=== PATIENT | male | born 1965 | race Caucasian/White ===

== ENCOUNTER 2016-09-04 10:07 | Emergency (ER) | payer OTHER ==
[2016-09-04 10:14] VITALS: TEMP 98.2; BMI 28.3
[2016-09-04 10:30] LABS: AUTOMATED BASOPHIL 0.4 % (0-2); AUTOMATED EOSINOPHIL 2.2 % (0-5); AUTOMATED LYMPH 30.1 % (17-44); AUTOMATED MONOCYTE 6.8 % (3-10); AUTOMATED NEUTROPHIL 60.5 % (45-76); MPV 8.5 fL (7.4-10.4)
--- NOTE | 2016-09-04 10:40 | DIRPT ---
CLINICAL DATA: Right-sided chest and epigastric pain. EXAM: CHEST 2 VIEW COMPARISON: None. FINDINGS: Heart size is normal. Overall cardiomediastinal silhouette is within normal limits in size and configuration. Mild prominence of the pulmonary arteries suggests some degree of pulmonary artery hypertension. Lungs are clear. No evidence of pneumonia. No pleural effusion. No pneumothorax. Mild degenerative change noted within the thoracic spine. Osseous and soft tissue structures about the chest are otherwise unremarkable. IMPRESSION: 1. No acute findings. 2. Prominence of the pulmonary arteries suspicious for some degree of pulmonary artery hypertension. Electronically Signed By: Cameron Bridges M.D. On: 09/04/2016 10:38
[2016-09-04 10:41] LABS: BLOOD UREA NITROGEN 18 MG/DL (9-20); CALCIUM 9.3 MG/DL (8.4-10.2); CALCULATED OSMOLALITY 277 MOs/Kg (270-290); CHLORIDE 102 mEq/L (98-107); GLUCOSE 327 mg/dL (70-99); SODIUM LEVEL 136 mEq/L (137-146); TOTAL PROTEIN 7.4 G/DL (6.3-8.2)
[2016-09-04 10:42] LABS: PARTIAL THROMB. TIME 23.2 SEC (22-35)
[2016-09-04] MEDS ORDERED: ASPIRIN (CHEWABLE) 81 MG TAB PO ONE (10:49)
[2016-09-04] MEDS ORDERED: NITROGLYCERINE 2 % OINTMENT PACK TOP ONE (10:49)
--- NOTE | 2016-09-04 10:51 | EDPRACDOC ---
- General Information Information Source: Patient Mode of Arrival: Car - History of Present Illness Onset: 5 days HPI: Pt c/o Substernal chest pain radiating to back and epigastric area x 5 days. Denies fever, cough, congestion, sob, n/v, changes in bowel or bladder, leg swelling, rash. Cath and stress "many, many years ago", 1 stent placed. Chest Pain Location: Reports: Substernal, Epigastric Pain Radiation: Reports: Back Symptoms Occur: Reports: Gradually Cardiac Risk Factors: Reports: Smoker, Hyperlipidemia Cardiac History of: Reports: Cardiac Cath, Stress Test, Stent Medications within 24 Hours: Reports: None Prehospital Care: Reports: EKG Pain Came On: Reports: Gradually Pain Status: Present Now Pain Description: Reports: Aching Pain Severity: Mild Pain Worsens With: Reports: Nothing Pain Improves With: Reports: Nothing Associated Signs and Symptoms: Reports: Abdominal Pain <Consuelo Spence - Last Filed: 09/04/16 13:44> <Sangeeta Coburn - Last Filed: 09/04/16 13:46> - General Information Chief Complaint: Chest Pain Stated Complaint: CP Time Seen by Provider: 09/04/16 10:41 Home Medications: Home Medications No Home Medications 09/04/16 Allergies/Adverse Reactions: Allergies Allergy/AdvReac Type Severity Reaction Status Date / Time No Known Allergies Allergy Verified 09/04/16 10:09 ED Past Medical History - History Reviewed Yes Nurses notes reviewed and agree except as marked - Patient Medical History Cardiac History: Reports: Heart Attack, Hypercholesterolemia - Social Medical History Smoking Status: Heavy tobacco smoker (5 or more cigarettes/day or daily pipe/ cigar) ETOH: None Substance Abuse: None <Consuelo Spence E - Last Filed: 09/04/16 13:44> EDM Review of Systems - Review of Systems Constitutional: No Symptoms Reported. negative: Fever, Chills, Weakness, Fatigue, Loss of Appetite Ears: No Symptoms Reported. negative: Pain, Hearing Loss, Drainage, Ear Pulling Throat: No Symptoms Reported. negative: Pain, Swelling Nose: No Symptoms Reported. negative: Congestion, Bleeding, Discharge, Injection, Swelling, Deformity, Ecchymosis, Tender, Abrasion, Laceration Mouth: No Symptoms Reported. negative: Pain, Drooling Respiratory: No Symptoms Reported. negative: Cough, Brassy Cough, Barky Cough, Shortness of Breath, Wheezing, Hemoptysis Cardiovascular: Chest Pain Gastrointestinal: Pain. negative: No Symptoms Reported, Constipation, Diarrhea , Formula Intolerance, Melena, Nausea, Vomiting Genitourinary: No Symptoms Reported. negative: Dysuria, Hematuria, Frequency, Discharge, Bleeding, Testicular Pain, Neurological: No Symptoms Reported. negative: Headache, Dizziness, Seizure, Numbness, Weakness, Speech Difficulty, Gait Difficulty Musculoskeletal: Back Integumentary: No Symptoms Reported. negative: Itching, Rash, Bruising, Wound Allergic/Immunologic: No Symptoms Reported. negative: Hives, Itching Hematologic: No Symptoms Reported. negative: Lymphadenopathy, Easy Bruising, Easy Bleeding Psychiatric: No Symptoms Reported. negative: Anxiety, Depression, Hallucinations, Insomnia, Suicidal <Consuelo Spence E - Last Filed: 09/04/16 13:44> - Physical Exam Constitutional: Alert Oriented to: Time, Person, Place Last recorded Vital Signs: Last Vital Signs Temp 98.2 F 09/04/16 10:09 Pulse 102 09/04/16 10:45 Resp 18 09/04/16 10:45 BP 141/87 09/04/16 10:45 Pulse Ox 96 09/04/16 10:45 Oxygen Pulse Oxygen Saturation 96 O2 Device Room Air Oxygen Flow Rate Fraction of Inspired Oxygen ( FIO2) - HEENT Head: Normal ( normocephalic) Eye Exam: Normal (PERRL, EOMI, Sclera white) Oropharynx: Normal (Pharynx:Moist without exudate,Gums-no swelling) Tympanic Membrane: Normal ENT EAC: Normal Nose: No Symptoms Reported (septum midline) Neck: Normal (FROM, trachea at midline) - Respiratory/Cardiovascular Respiratory: Normal - CTA (BBS clear to auscultation without adventitious sounds ) Cardiovascular: Tachycardia - GI Auscultation: Normal (NABS) Palpation: Normal (Soft,No rebound or guarding, non distended) Tenderness: Non tender GI Comment: ventral hernia non tender and reducible - Musculoskeletal Back: Normal (Non-Tender) Extremities: Normal (Normal tone, Pulses 2+ No cyanosis or edema, FROM) - Integumentary Skin: Normal, Warm, Dry Lymphatics: Normal (no adenopathy) - Neurologic Memory Impaired: Normal Motor Function: Normal (Normal tone, Pulses 2+ No cyanosis or edema, FROM) Mood Description: Normal Perception: Normal <Spence,Consuelo E - Last Filed: 09/04/16 13:44> - Physical Exam Last recorded Vital Signs: Last Vital Signs Temp 98.2 F 09/04/16 10:09 Pulse 96 09/04/16 13:23 Resp 18 09/04/16 13:23 BP 127/79 09/04/16 13:23 Pulse Ox 94 09/04/16 13:23 Oxygen Pulse Oxygen Saturation 94 O2 Device Room Air Oxygen Flow Rate Fraction of Inspired Oxygen ( FIO2) <Sangeeta Coburn - Last Filed: 09/04/16 13:46> ED Chest Pain Exam - Respiratory/Cardiovascular Respiratory: Normal - CTA (clear to auscultation without adventitious sounds) Cardiovascular/Chest: Tachycardia Radial Pulse: Normal Edema: 5. negative: 1+, 2+, 3+, 4+, 6 Chest Palpation: Normal (No chest tenderness) <JordyConsuelo E - Last Filed: 09/04/16 13:44> - Differential Diagnosis Angina, Chest wall pain, Esophageal reflux/spasm, Gastritis, Myocardial infarction, Pancreatitis - Action ASA given in the ED: Yes - Results 09/04/16 10:19 09/04/16 10:19 WBC 6.4 xk/uL (3.8-10.8) 09/04/16 10:19 RBC 6.50 xM/uL (4.70-6.10) H 09/04/16 10:19 Hgb 19.0 g/dL (14.0-18.0) H 09/04/16 10:19 Hct 54.2 % (42-52) H 09/04/16 10:19 MCV 83 fL (80-94) 09/04/16 10:19 MCH 29.2 pg (27-32) 09/04/16 10:19 MCHC 35.0 g/dl (33-36) 09/04/16 10:19 RDW 12.9 % (11.5-14.5) 09/04/16 10:19 Plt Count 223 xk/uL (130-400) 09/04/16 10:19 MPV 8.5 fL (7.4-10.4) 09/04/16 10:19 Neut % (Auto) 60.5 % (45-76) 09/04/16 10:19 Lymph % (Auto) 30.1 % (17-44) 09/04/16 10:19 [place] % (Auto) 6.8 % (3-10) 09/04/16 10:19 Eos % (Auto) 2.2 % (0-5) 09/04/16 10:19 Baso % (Auto) 0.4 % (0-2) 09/04/16 10:19 Absolute Neuts (auto) 3.84 xk/uL (1.7-8.2) 09/04/16 10:19 Absolute Lymphs (auto) 1.92 xk/uL (0.65-4.75) 09/04/16 10:19 PT 10.1 SEC (9.2-11.2) 09/04/16 10:19 INR 1.0 09/04/16 10:19 APTT 23.2 SEC (22-35) 09/04/16 10:19 Lab Results 09/04/16 09/04/16 10:19 10:19 WBC 6.4 RBC 6.50 H Hgb 19.0 H Hct 54.2 H MCV 83 MCH 29.2 MCHC 35.0 RDW 12.9 Plt Count 223 MPV 8.5 Neut % (Auto) 60.5 Lymph % (Auto) 30.1 [place] % (Auto) 6.8 Eos % (Auto) 2.2 Baso % (Auto) 0.4 Absolute Neuts (auto) 3.84 Absolute Lymphs (auto) 1.92 PT 10.1 INR 1.0 APTT 23.2 Laboratory Results - last 24 hr 09/04/16 09/04/16 10:19 10:19 WBC 6.4 RBC 6.50 H Hgb 19.0 H Hct 54.2 H MCV 83 MCH 29.2 MCHC 35.0 RDW 12.9 Plt Count 223 MPV 8.5 Neut % (Auto) 60.5 Lymph % (Auto) 30.1 [place] % (Auto) 6.8 Eos % (Auto) 2.2 Baso % (Auto) 0.4 Absolute Neuts (auto) 3.84 Absolute Lymphs (auto) 1.92 PT 10.1 INR 1.0 APTT 23.2 Laboratory Results 09/04/16 10:19 - EKG EKG #1 EKG Time: 10:09 Rate: bpm: 120 [place]: Normal Rhythm: ST Block: None ST: Nonsp - Diagnostic Imaging Chest Image interpreted by: Radiologist IMPRESSION: 1. No acute findings. 2. Prominence of the pulmonary arteries suspicious for some degree of pulmonary artery hypertension. CT: IMPRESSION: No evidence of pulmonary embolus. Coronary artery disease. No acute cardiopulmonary disease. <Consuelo Spence E - Last Filed: 09/04/16 13:44> - Results 09/04/16 10:19 09/04/16 10:19 WBC 6.4 xk/uL (3.8-10.8) 09/04/16 10:19 RBC 6.50 xM/uL (4.70-6.10) H 09/04/16 10:19 Hgb 19.0 g/dL (14.0-18.0) H 09/04/16 10:19 Hct 54.2 % (42-52) H 09/04/16 10:19 MCV 83 fL (80-94) 09/04/16 10:19 MCH 29.2 pg (27-32) 09/04/16 10:19 MCHC 35.0 g/dl (33-36) 09/04/16 10:19 RDW 12.9 % (11.5-14.5) 09/04/16 10:19 Plt Count 223 xk/uL (130-400) 09/04/16 10:19 MPV 8.5 fL (7.4-10.4) 09/04/16 10:19 Neut % (Auto) 60.5 % (45-76) 09/04/16 10:19 Lymph % (Auto) 30.1 % (17-44) 09/04/16 10:19 [place] % (Auto) 6.8 % (3-10) 09/04/16 10:19 Eos % (Auto) 2.2 % (0-5) 09/04/16 10:19 Baso % (Auto) 0.4 % (0-2) 09/04/16 10:19 Absolute Neuts (auto) 3.84 xk/uL (1.7-8.2) 09/04/16 10:19 Absolute Lymphs (auto) 1.92 xk/uL (0.65-4.75) 09/04/16 10:19 PT 10.1 SEC (9.2-11.2) 09/04/16 10:19 INR 1.0 09/04/16 10:19 APTT 23.2 SEC (22-35) 09/04/16 10:19 Sodium 136 mEq/L (137-146) L 09/04/16 10:19 Potassium 4.4 mEq/L (3.5-5.1) 09/04/16 10:19 Chloride 102 mEq/L (98-107) 09/04/16 10:19 Carbon Dioxide 21 mMOL/L (22-33) L 09/04/16 10:19 Anion Gap 17 mEq/L (8-16) H 09/04/16 10:19 BUN 18 MG/DL (9-20) 09/04/16 10:19 Creatinine 0.50 MG/DL (0.66-1.25) L 09/04/16 10:19 Estimated GFR (MDRD) TNP 09/04/16 10:19 Glucose 327 mg/dL (70-99) H 09/04/16 10:19 Calculated Osmolality 277 MOs/Kg (270-290) 09/04/16 10:19 Calcium 9.3 MG/DL (8.4-10.2) 09/04/16 10:19 Total Bilirubin 0.8 MG/DL (0.2-1.3) 09/04/16 10:19 AST 15 IU/L (17-59) L 09/04/16 10:19 ALT 33 IU/L (21-72) 09/04/16 10:19 Alkaline Phosphatase 131 IU/L (38-126) H 09/04/16 10:19 Troponin I < 0.01 ng/mL (<.04) 09/04/16 12:55 Lex-C-[place] Pept 20 pg/mL (0-450) 09/04/16 10:19 Total Protein 7.4 G/DL (6.3-8.2) 09/04/16 10:19 Albumin 4.2 G/DL (3.5-5.0) 09/04/16 10:19 Lipase 70 U/L (23-300) 09/04/16 10:19 Lab Results 09/04/16 09/04/16 09/04/16 12:55 10:19 10:19 WBC RBC Hgb Hct MCV MCH MCHC RDW Plt Count MPV Neut % (Auto) Lymph % (Auto) [place] % (Auto) Eos % (Auto) Baso % (Auto) Absolute Neuts (auto) Absolute Lymphs (auto) PT 10.1 INR 1.0 APTT 23.2 Sodium Potassium Chloride Carbon Dioxide Anion Gap BUN Creatinine Estimated GFR (MDRD) Glucose Calculated Osmolality Calcium Total Bilirubin AST ALT Alkaline Phosphatase Troponin I < 0.01 Bxh-P-Ecubfipgxgi Pept Total Protein Albumin Lipase 70 09/04/16 09/04/16 10:19 10:19 WBC 6.4 RBC 6.50 H Hgb 19.0 H Hct 54.2 H MCV 83 MCH 29.2 MCHC 35.0 RDW 12.9 Plt Count 223 MPV 8.5 Neut % (Auto) 60.5 Lymph % (Auto) 30.1 [place] % (Auto) 6.8 Eos % (Auto) 2.2 Baso % (Auto) 0.4 Absolute Neuts (auto) 3.84 Absolute Lymphs (auto) 1.92 PT INR APTT Sodium 136 L Potassium 4.4 Chloride 102 Carbon Dioxide 21 L Anion Gap 17 H BUN 18 Creatinine 0.50 L Estimated GFR (MDRD) TNP Glucose 327 H Calculated Osmolality 277 Calcium 9.3 Total Bilirubin 0.8 AST 15 L ALT 33 Alkaline Phosphatase 131 H Troponin I < 0.01 Fdr-I-Jpcoacglqey Pept 20 Total Protein 7.4 Albumin 4.2 Lipase Laboratory Results - last 24 hr 09/04/16 09/04/16 09/04/16 10:19 10:19 10:19 WBC 6.4 RBC 6.50 H Hgb 19.0 H Hct 54.2 H MCV 83 MCH 29.2 MCHC 35.0 RDW 12.9 Plt Count 223 MPV 8.5 Neut % (Auto) 60.5 Lymph % (Auto) 30.1 [place] % (Auto) 6.8 Eos % (Auto) 2.2 Baso % (Auto) 0.4 Absolute Neuts (auto) 3.84 Absolute Lymphs (auto) 1.92 PT 10.1 INR 1.0 APTT 23.2 Sodium 136 L Potassium 4.4 Chloride 102 Carbon Dioxide 21 L Anion Gap 17 H BUN 18 Creatinine 0.50 L Estimated GFR (MDRD) TNP Glucose 327 H Calculated Osmolality 277 Calcium 9.3 Total Bilirubin 0.8 AST 15 L ALT 33 Alkaline Phosphatase 131 H Troponin I < 0.01 Fqh-U-Afqqdzcburi Pept 20 Total Protein 7.4 Albumin 4.2 Lipase 09/04/16 09/04/16 10:19 12:55 WBC RBC Hgb Hct MCV MCH MCHC RDW Plt Count MPV Neut % (Auto) Lymph % (Auto) [place] % (Auto) Eos % (Auto) Baso % (Auto) Absolute Neuts (auto) Absolute Lymphs (auto) PT INR APTT Sodium Potassium Chloride Carbon Dioxide Anion Gap BUN Creatinine Estimated GFR (MDRD) Glucose Calculated Osmolality Calcium Total Bilirubin AST ALT Alkaline Phosphatase Troponin I < 0.01 Wcx-G-Ahprftwtnxe Pept Total Protein Albumin Lipase 70 Laboratory Results 09/04/16 10:19 09/04/16 10:19 <Sangeeta Coburn - Last Filed: 09/04/16 13:46> - Departure Disposition: Admit IP To This Hospital Education/Counseling Given To: Patient, Family Member Education/Counseling Given Regarding: Diagnosis, Treatment Decision to Admit Time: 13:45 Decision to admit date: 09/04/16 Decision to admit: from ED <Consuelo Spence - Last Filed: 09/04/16 13:44> - Departure Yes I personally saw and evaluated the patient. 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 transplanted heart: [place] heart Associated angina: with unspecified angina Qualified Code(s): I25.119 - Atherosclerotic heart disease of [place] coronary artery with unspecified angina pectoris Instructions: Chest Pain (ED), Chest Wall Pain (ED), Managing Diabetes During Sick Days (ED), Diabetes and Exercise Referrals: None,No Provider [Primary Care Provider] - One Week Prescriptions: No Action No Home Medications 0 NA DIR #0 info Forms: Patient Discharge Instructions, ED Discharge Instructions
[2016-09-04] MEDS ORDERED: Pharmacy Review for Metformin - IV Contrast Given SCH (12:00)
[2016-09-04] MEDS ORDERED: MORPHINE 4 MG/ML INJECTION IV ONE (12:27)
--- NOTE | 2016-09-04 13:35 | DIRPT ---
CLINICAL DATA: Abnormal chest x-ray. Hypoxia. Right chest pain for 5 days P EXAM: CT ANGIOGRAPHY CHEST WITH CONTRAST TECHNIQUE: Multidetector CT imaging of the chest was performed using the standard protocol during bolus administration of intravenous contrast. Multiplanar CT image reconstructions and MIPs were obtained to evaluate the vascular anatomy. CONTRAST: 80 cc Isovue 370 IV COMPARISON: Chest x-ray 09/04/2016 FINDINGS: No filling defects in the pulmonary arteries to suggest pulmonary emboli. Heart is normal size. Aorta is normal caliber. Dense coronary artery calcifications in the left anterior descending and right coronary arteries. No mediastinal, hilar, or axillary adenopathy. Chest wall soft tissues are unremarkable. Lungs are clear. No focal airspace opacities or suspicious nodules. No effusions. No acute bony abnormality or focal bone lesion. Review of the MIP images confirms the above findings. IMPRESSION: No evidence of pulmonary embolus. Coronary artery disease. No acute cardiopulmonary disease. Electronically Signed By: Андрей Perry M.D. On: 09/04/2016 13:32
[2016-09-04] MEDS ORDERED: REGULAR INSULIN 100 UNITS/ML - 3 ML VIAL IV ONE (13:46)
[2016-09-04 14:50] VITALS: BP 103/72; PULSE 113
--- NOTE | 2016-09-04 15:10 | HIMCONSMED ---
Consultation Date: 09/04/16 Requesting Physician: Sangeeta Coburn Consulting Doctor: Jamee Parnell Consult Reason: Other-specify below (Chest pain in pt with CAD) This is an unfortunate 51-year-old gentleman who are spent the past 8 years caring for his who . At that point he had lost his insurance and was fairly test 2. He has since then gotten a job in [employer] health insurance but remains very concerned about the cost of his health care. During the time that his was ill and had he did not seek medical care and his medicines for his diabetes ran out completely. Approximately 10 years ago he did have a coronary stent placed. He presents today complaining of chest pain. His cardiac risk factors include coronary artery disease with previous stent placement, tobacco use heavy smoker, diabetes out of control, no hypertension and unknown cholesterol status. A CT scan of his chest was obtained to rule out pulmonary embolism and the patient was found to have significant coronary artery calcifications. 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 I was asked to further evaluate and treat the patient. Chief Complaint: Chest pain on and off for 5 days - Past Medical and Surgical History Cardiac History: Reports: Coronary Artery Disease, Heart Attack, Hypercholesterolemia Respiratory History: Reports: No Significant History GI/ History: Reports: No Significant History Systemic History: Reports: No Significant History Psychological History: Reports: Depression Neurological History: Reports: No Significant History Past Surgical History: Reports: Cardiac Catheterization (With stent placement) Allergies No Known Allergies Allergy (Verified 09/04/16 10:09) Home Medications No Home Medications 09/04/16 - Social History Travel Outside of [place] in the Last 3 Months?: No Lives: Alone Smoking Status: Heavy tobacco smoker (5 or more cigarettes/day or daily pipe/ cigar) Social History: Denies: Alcohol Use, Substance Use Disorder - Family History Reports: Cardiac Disorders - Review of Systems Constitutional: No Symptoms Reported (No Fever, chills, wt loss/gain, diaphoresis,fatigue/malaise.) Eyes: No Symptoms Reported (No blurry vision, visual changes, eye pain, or eye redness.) Ears: No Symptoms Reported (No ear pain or discharge) Nose: No Symptoms Reported (No nasal discharge/congestion or bleeding) Mouth: No Symptoms Reported (No oropharyngeal lesions or erythema) Throat/Neck: No Symptoms Reported (No throat pain or swelling.No oropharyngeal lesions or erythema.) Respiratory: No Symptoms Reported (No cough, wheezing, or shortness of breath.) . negative: Shortness of Breath, Wheezing, Sputum Cardiovascular: Chest Pain. negative: Orthopnea, Palpitations, Syncope Gastrointestinal: No Symptoms Reported (No abdominal pain, nausea, vomiting, diarrhea, constipation, or bloody stool.) Genitourinary: No Symptoms Reported (No dysuria or hematuria.) Neurological: No Symptoms Reported (No headache, dizziness, seizures, or focal weakness.) Musculoskeletal:: No Symptoms Reported Integumentary: No Symptoms Reported (no rashes or lesions) Allergic/Immunologic: No Symptoms Reported (no rashes or lesions) Hematologic: No Symptoms Reported (No chronic anemia, bleeding, or easy bruising.), Other (Lymphatics- no lymph node swelling or pain.) Endocrine: No Symptoms Reported (No thyroid issues, polyuria, or polydipsia.) Psychiatric: No Symptoms Reported (Fully oriented, with normal and appropriate affect.) - Physical Exam Vital Signs: Initial Vitals Temperature 98.2 F 09/04/16 10:09 Pulse Rate 115 09/04/16 10:09 Respiratory Rate 20 09/04/16 10:09 Blood Pressure 179/79 09/04/16 10:09 Pulse Oxygen Saturation 95 09/04/16 10:09 Constitutional: No apparent distress, Agitated, Well nourished, Well appearing Oriented to: Time, Person, Place - HEENT Head: Normal (normocephalic, atraumatic.), Other (No cervical lymphadenopathy. No supraclavicular lymphadenopathy. Neck: No palpable mass, supple , trachea midline.) Eye: Normal (pupils equal, reactive to light, and round; EOMI, Sclera white) Oropharynx: Normal (Pharynx: Moist without exudate,Gums-no swelling, No oropharyngeal lesions or erythema, Mucous membranes are dry.) Nose: No Symptoms Reported (septum midline, Nares patent, without discharge or bleeding.) Respiratory: Normal - CTA (Clear to auscultation bilaterally. No wheezing, rales , rhonchi. Chest wall movements are symmetric. No use of accessory muscles to breathe.) Cardiovascular: Normal (RRR , Normal S1, S2. No murmurs, rubs, or gallops. PMI non-displaced. Carotids: no carotid bruits. No bradycardia or tachycardia. DP pulses 2+ bilaterally.) - GI Auscultation: Normal (normal active sounds) Palpation: Normal (Soft,non distended,nontender. No hepatosplenomegaly.) Tenderness: Non tender (No rebound or guarding) Morrissey's Sign: Negative - Musculoskeletal Back: Normal (Non-Tender) Extremities: Normal (Normal tone, DP pulses 2+ bilaterally, No cyanosis or edema bilaterally, FROM bilaterally.) - Integumentary Skin: Normal (Clean, dry, and intact. No rashes. No lesions.) Lymphatics: Normal (No cervical lymphadenopathy. No supraclavicular lymphadenopathy.) - Neurologic Memory Impaired: Normal Motor Function: Normal (Motor 5/5 throughout.Normal tone, Pulses 2+ No cyanosis or edema, FROM) Cranial Nerve: Normal (CN II-XII intact sensation, strength 5/5) Cerebellar: Normal (Babinski: toes downgoing bilaterally. Intact Finger to nose. Sensory grossly intact to light touch. Intact rapid alternating movements bilaterally. No pronator drift.) Mood Description: Normal (Fully oriented. Normal and appropriate affect.) Perception: Normal (Normal and appropriate affect.) - Lab Results Laboratory Results - last 24 hr 09/04/16 09/04/16 09/04/16 10:19 10:19 10:19 WBC 6.4 RBC 6.50 H Hgb 19.0 H Hct 54.2 H MCV 83 MCH 29.2 MCHC 35.0 RDW 12.9 Plt Count 223 MPV 8.5 Neut % (Auto) 60.5 Lymph % (Auto) 30.1 [place] % (Auto) 6.8 Eos % (Auto) 2.2 Baso % (Auto) 0.4 Absolute Neuts (auto) 3.84 Absolute Lymphs (auto) 1.92 PT 10.1 INR 1.0 APTT 23.2 Sodium 136 L Potassium 4.4 Chloride 102 Carbon Dioxide 21 L Anion Gap 17 H BUN 18 Creatinine 0.50 L Estimated GFR (MDRD) TNP Glucose 327 H Calculated Osmolality 277 Calcium 9.3 Total Bilirubin 0.8 AST 15 L ALT 33 Alkaline Phosphatase 131 H Troponin I < 0.01 Zyk-T-Phyjwzqcqsa Pept 20 Total Protein 7.4 Albumin 4.2 Lipase 09/04/16 09/04/16 10:19 12:55 WBC RBC Hgb Hct MCV MCH MCHC RDW Plt Count MPV Neut % (Auto) Lymph % (Auto) [place] % (Auto) Eos % (Auto) Baso % (Auto) Absolute Neuts (auto) Absolute Lymphs (auto) PT INR APTT Sodium Potassium Chloride Carbon Dioxide Anion Gap BUN Creatinine Estimated GFR (MDRD) Glucose Calculated Osmolality Calcium Total Bilirubin AST ALT Alkaline Phosphatase Troponin I < 0.01 Uoj-S-Icemlddnnbt Pept Total Protein Albumin Lipase 70 - Diagnostic Findings CHEST 2 VIEW COMPARISON: None. FINDINGS: Heart size is normal. Overall cardiomediastinal silhouette is within normal limits in size and configuration. Mild prominence of the pulmonary arteries suggests some degree of pulmonary artery hypertension. Lungs are clear. No evidence of pneumonia. No pleural effusion. No pneumothorax. Mild degenerative change noted within the thoracic spine. Osseous and soft tissue structures about the chest are otherwise unremarkable. IMPRESSION: 1. No acute findings. 2. Prominence of the pulmonary arteries suspicious for some degree of pulmonary artery hypertension. Electronically Signed By: Cameron Bridges M.D. On: 09/04/2016 10:38 EXAM: CT ANGIOGRAPHY CHEST WITH CONTRAST TECHNIQUE: Multidetector CT imaging of the chest was performed using the standard protocol during bolus administration of intravenous contrast. Multiplanar CT image reconstructions and MIPs were obtained to evaluate the vascular anatomy. CONTRAST: 80 cc Isovue 370 IV COMPARISON: Chest x-ray 09/04/2016 FINDINGS: No filling defects in the pulmonary arteries to suggest pulmonary emboli. Heart is normal size. Aorta is normal caliber. Dense coronary artery calcifications in the left anterior descending and right coronary arteries. No mediastinal, hilar, or axillary adenopathy. Chest wall soft tissues are unremarkable. Lungs are clear. No focal airspace opacities or suspicious nodules. No effusions. No acute bony abnormality or focal bone lesion. Review of the MIP images confirms the above findings. IMPRESSION: No evidence of pulmonary embolus. Coronary artery disease. No acute cardiopulmonary disease. Electronically Signed By: Андрей Perry M.D. On: 09/04/2016 13:32 - Assessment (1) Chest pain R07.9 - CHEST PAIN, UNSPECIFIED Acute Present on Admission: Yes Qualifiers: Chest pain type: chest pain due to myocardial ischemia Ischemic chest pain type: unspecified angina pectoris type Qualified Code(s): I20.9 - Angina pectoris, unspecified Patient with chest pain and significant finding on physical examination and radiographically suggesting coronary artery disease. I have recommended he be admitted to the hospital for rule out myocardial infarction and stress testing. The patient has refused admission to the hospital. I spoke with Cardiology and they will be able to do an outpatient stress test on the patient tomorrow. I explained to the patient that this is not the ideal situation and that he would need to sign out against medical advice because of the severity of his symptoms and his risk factors being highly suggestive of active coronary disease. The patient has agreed and he will return tomorrow for stress testing. I spoke with Dr. Buchanan about the case who agrees that stress echocardiogram would be appropriate. I have prescribed for the patient sublingual nitroglycerin 07/30/1948 p.o. Q 5 minutes p.r.n. chest pain may used up to 3 times in 15 minutes if pain persists to go to the emergency department. Enteric-coated aspirin 325 mg 1 p.o. q.day metoprolol tartrate 25 mg 1 p.o. Q 12 hours. (2) CAD (coronary artery disease) I25.10 - ATHSCL HEART DISEASE OF [place] CORONARY ARTERY W/O ANG PCTRS Acute Present on Admission: Yes Qualifiers: Coronary Disease-Associated Artery/Lesion type: [place] artery [place] vs. transplanted heart: [place] heart Associated angina: with unstable angina Qualified Code(s): I25.110 - Atherosclerotic heart disease of [place] coronary artery with unstable angina pectoris Very concerning as above. Patient was instructed to return to the emergency department if he has recurrent chest pain. (3) Uncontrolled type 2 diabetes mellitus, without long-term current use of insulin E11.65 - TYPE 2 DIABETES MELLITUS WITH HYPERGLYCEMIA Acute Present on Admission: Yes Qualifiers: Diabetes mellitus complication status: with circulatory complication Diabetes mellitus complication detail: with other circulatory complications Qualified Code(s): E11.59 - Type 2 diabetes mellitus with other circulatory complications; E11.65 - Type 2 diabetes mellitus with hyperglycemia Patient will be prescribed metformin XL 500 mg 1 p.o. twice daily with meals. He is to follow up with a primary care physician. He has not obtained 1 yet as he only recently received his health insurance. - Plan Patient to return in a.m. for stress echocardiogram. Patient will sign out against medical advice. Case Care Discussed with: Patient, Consultants, Family, Nursing Staff Total Time: 55 minutes Critical Care: No Couseling Time (>50% in counseling/coordination): No
== END 2016-09-04 14:45 | disposition left against medical advice (07) ==
LOC: ED 10:07
DX: I25.119 Atherosclerotic heart disease of native coronary artery with unspecified angina pectoris (principal)
CPT/HCPCS: 36415; 71020; 71275; 80053; 83690; 83880; 84484; 85025; 85610; 85730; 93005; 96374; 96375; 99284; A9698; J2270; J3490